=== PATIENT | female | born 1980 | race Caucasian/White ===

== ENCOUNTER 2016-11-07 05:36 | Day surgery (SDC) | payer BC ==
[2016-11-07] VITALS (9 sets, daily range): BP systolic 112–125; BP diastolic 65–81; PULSE 60–93; TEMP 97.7–98.2
[~2016-11-07] VITALS: Ht 162.6 cm; Wt 96.1 kg
[2016-11-07] MEDS ORDERED: CLARITIN 1010 MG/TAB PO (06:07)
[2016-11-07 06:33] LABS: HEMATOCRIT 41.8 % (37.0-47.0); HEMOGLOBIN 14.3 g/dl (12.5-16.0)
[2016-11-07] MEDS ORDERED: MOTRIN 800800 MG/TAB PO (07:01)
[2016-11-07] MEDS ORDERED: PERCOCET 325 MG1 TA2 PO (07:01)
== END 2016-11-07 17:40 | disposition home or self-care (01) ==
LOC: SDCO 05:36 → OB 10:00 → SDCO 14:38
PROVIDERS: Obstetrics & Gynecology
DX: Z15.09 Genetic susceptibility to other malignant neoplasm (principal); D25.9 Leiomyoma of uterus, unspecified; E11.9 Type 2 diabetes mellitus without complications; F41.9 Anxiety disorder, unspecified; I10 Essential (primary) hypertension; F17.210 Nicotine dependence, cigarettes, uncomplicated; K21.9 Gastro-esophageal reflux disease without esophagitis; F32.9 Major depressive disorder, single episode, unspecified; Z82.49 Family history of ischemic heart disease and other diseases of the circulatory system; Z68.30 Body mass index [BMI] 30.0-30.9, adult; Z80.0 Family history of malignant neoplasm of digestive organs; Z98.51 Tubal ligation status
CPT/HCPCS: OP; A4315; J0690; J1100; J1200; J1885; J2270; J2405; J2550; J2704; J2710; J3010; J7120

== ENCOUNTER 2016-11-23 15:57 | Observation (INO) | payer BC ==
[~2016-11-23] VITALS: Ht 162.6 cm; Wt 95.5 kg
[~2016-11-23 15:57] MED LIST: CLARITIN 1010 MG/TAB PO; MOTRIN 800800 MG/TAB PO; PERCOCET 325 MG1 TA2 PO
[2016-11-23 16:59] LABS: BASO # 0.1 (0.0-0.2); BASO % 0.7 % (0.0-2.0); EOS % 8.7 % (0-4.0); GRAN # 7.9 (1.4-6.5); GRAN % 66.8 % (42.2-75.2); HEMATOCRIT 39.2 % (37.0-47.0); HEMOGLOBIN 13.1 g/dl (12.5-16.0); LYMPH # 2.1 (1.2-3.4); LYMPH % 17.6 % (20.0-51.0); MEAN CELL VOLUME 91 fl (80.0-100.0); MEAN CORPUSCULAR HEMOGLOBIN 30 pg (27.0-31.0); MEAN CORPUSCULAR HGB CONC 33 g/dl (33.0-37.0); MEAN PLATELET VOLUME 11.1 fl (7.4-10.4); MONO # 0.7 (0.1-0.6); MONO % 5.7 % (1.7-9.3); PLATELET COUNT 309 K/mm3 (130-400); RED BLOOD COUNT 4.31 M/mm3 (4.10-5.30); REDCELL DISTRIBUTION WIDTH-CV 11.8 % (11.5-14.5); WHITE BLOOD COUNT 11.9 K/mm3 (4.8-10.8)
[2016-11-23 17:11] LABS: ADJUSTED CALCIUM 8.9 mg/dL (8.4-10.2); ALBUMIN 4.2 gm/dL (3.5-5.0); BILIRUBIN,TOTAL 0.6 mg/dL (0.0-1.0); CALCIUM 9.1 mg/dL (8.4-10.2); CREATININE, serum 0.75 mg/dL (0.52-1.25); POTASSIUM 4.1 mmol/L (3.4-5.0); TOTAL PROTEIN 7.5 gm/dL (6.4-8.2)
[2016-11-23 17:45] LABS: PH 8 (5-8); SQUAMOUS EPITHELIAL 0-2 /hpf; URINE APPEARANCE Cloudy; URINE BACTERIA None Seen /hpf; URINE BILIRUBIN Negative (NEGATIVE); URINE BLOOD 2+ (NEGATIVE); URINE COLOR Yellow; URINE GLUCOSE Negative (NEGATIVE); URINE KETONE Negative (NEGATIVE); URINE RBC 20-50 /hpf; URINE UROBILINOGEN Negative (NEGATIVE)
[2016-11-23 17:48] LABS: URINE WBC >50 /hpf
[2016-11-23 22:10] VITALS: BP 122/72; PULSE 96; TEMP 99.9
[2016-11-24 07:26] LABS: CALCIUM 8.7 mg/dL (8.4-10.2); CREATININE, serum 0.68 mg/dL (0.52-1.25); POTASSIUM 3.8 mmol/L (3.4-5.0)
[2016-11-24 07:37] LABS: BASO # 0.1 (0.0-0.2); BASO % 0.5 % (0.0-2.0); EOS # 1.2 (0.0-0.7); EOS % 10.7 % (0-4.0); GRAN # 6.8 (1.4-6.5); LYMPH # 2.3 (1.2-3.4); LYMPH % 20.6 % (20.0-51.0); MEAN CELL VOLUME 94 fl (80.0-100.0); MEAN CORPUSCULAR HGB CONC 33 g/dl (33.0-37.0); MEAN PLATELET VOLUME 11.2 fl (7.4-10.4); MONO # 0.7 (0.1-0.6); MONO % 6.7 % (1.7-9.3); PLATELET COUNT 276 K/mm3 (130-400); RED BLOOD COUNT 3.72 M/mm3 (4.10-5.30); REDCELL DISTRIBUTION WIDTH-CV 11.9 % (11.5-14.5); WHITE BLOOD COUNT 11.1 K/mm3 (4.8-10.8)
[2016-11-24 07:43] LABS: HEMATOCRIT 34.8 % (37.0-47.0); HEMOGLOBIN 11.3 g/dl (12.5-16.0); MEAN CORPUSCULAR HEMOGLOBIN 30 pg (27.0-31.0)
[2016-11-24 08:10] VITALS: BP 105/52; PULSE 72; TEMP 98.2
[2016-11-24] MEDS ORDERED: CEPHALEXIN500 M1 PO (08:54)
[2016-11-24] MEDS ORDERED: PERCOCET 325 MG1 TA2 PO (08:54)
[2016-11-24] MEDS ORDERED: MOTRIN 800800 MG/TAB PO (08:54)
== END 2016-11-24 13:00 | disposition home or self-care (01) ==
LOC: COL.ER 15:57 → OB 20:50
PROVIDERS: Emergency Medicine; Obstetrics & Gynecology
DX: R10.2 Pelvic and perineal pain (principal); N39.0 Urinary tract infection, site not specified; Z15.09 Genetic susceptibility to other malignant neoplasm; D72.829 Elevated white blood cell count, unspecified; F41.9 Anxiety disorder, unspecified; Z90.710 Acquired absence of both cervix and uterus; Z80.0 Family history of malignant neoplasm of digestive organs; F17.210 Nicotine dependence, cigarettes, uncomplicated
CPT/HCPCS: G0378; J0290; J2270; J2405; J2543; J7030; J7050; J7120; Q9967